=== PATIENT | female | born 1990 | race Caucasian/White ===

== ENCOUNTER 2017-07-21 10:08 | Emergency (ER) | payer BC, MEDICAID ==
[2017-07-21] MEDS ORDERED: KETOROLAC TROMETHAMINE INJ/PF 30 MG/1 ML SDV IV ONE (10:25)
[2017-07-21] MEDS ORDERED: DEXAMETHASONE SOD PHOS INJ 10 MG/1 ML VIAL IV ONE (10:25)
[2017-07-21] MEDS ORDERED: METOCLOPRAMIDE HCL INJ/PF 10 MG/2 ML SDV IV ONE (10:25)
[2017-07-21] MEDS ORDERED: DIPHENHYDRAMINE HCL 50 MG/ML VIAL IV ONE (10:25)
--- NOTE | 2017-07-21 10:41 | ER Document Report ---
ED General - General Chief Complaint: Headache Stated Complaint: VOMITING,HEADACHE Time Seen by Provider: 07/21/17 10:22 Notes: 18-year-old female with a history of infrequent migraines presents with gradual onset headache this morning, holocephalic with total body weakness photophobia and nausea but no vomiting. No focal weakness or numbness, similar to prior migraines except worse. No neck stiffness or fever. No home therapy. TRAVEL OUTSIDE OF THE [place] IN LAST 30 DAYS: No - Related Data Allergies/Adverse Reactions: No Known Allergies Allergy (Verified 07/21/17 10:11) Past Medical History - General Information source: Patient - Social History Smoking Status: Never Smoker Family History: Reviewed & Not Pertinent - Past Medical History Cardiac Medical History: Denies: Hx Coronary Artery Disease, Hx Heart Attack, Hx Hypertension Pulmonary Medical History: Denies: Hx Asthma, Hx Bronchitis, Hx COPD, Hx Pneumonia Neurological Medical History: Denies: Hx Cerebrovascular Accident, Hx Seizures Musculoskeltal Medical History: Denies Hx Arthritis, Denies Hx Fibromyalgia, Denies Hx Muscular Dystrophy Skin Medical History: Reports Hx MRSA Psychiatric Medical History: Reports: Hx Depression - Bupropion XR 150mg Qday Denies: Hx Bipolar Disorder, Hx Post Traumatic Stress Disorder, Hx Schizophrenia Traumatic Medical History: Reports: Hx Fractures Past Surgical History: Reports: Hx Gynecologic Surgery - Cold knife conization after abnormal PAP. Denies: Hx Appendectomy, Hx Bowel Surgery, Hx Section, Hx Cholecystectomy, Hx Coronary Artery Bypass Graft, Hx Gastric Bypass Surgery, Hx Herniorrhaphy, Hx Hysterectomy, Hx Mastectomy, Hx Pacemaker, Hx Tonsillectomy, Hx Tubal Ligation - Immunizations Hx Diphtheria, Pertussis, Tetanus Vaccination: Yes Review of Systems - Review of Systems Notes: REVIEW OF SYSTEMS GEN: Denies fever, chills, weight loss ENT: Denies sore throat, nasal discharge, ear pain EYES: Denies blurry vision, eye pain, discharge. Photophobia. CV: Denies chest pain, palpitations, edema RESP: Denies cough, shortness of breath, wheezing GI: Denies abdominal pain, nausea, vomiting, diarrhea MSK: Denies joint pain/swelling, edema, SKIN: Denies rash, skin lesions LYMPH: Denies swollen glands/lymph nodes NEURO: Headache, denies focal weakness or numbness, dizziness PSYCH: Denies depression, suicidal or homicidal ideation PHYSICAL EXAMINATION General: No acute distress, well-nourished Head: Atraumatic, normocephalic ENT: Mouth normal, oropharynx moist, no exudates or tonsillar enlargement Eyes: Conjunctiva normal, pupils equal, lids normal Neck: No JVD, supple, no guarding CVS: Normal rate, regular rhythm, no murmurs Resp: No resp distress, equal and normal breath sounds bilaterally GI: Nondistended, soft, no tenderness to palpation, no rebound or guarding Ext: No deformities, no edema, normal range of motion in upper and lower ext Back: No CVA or midline TTP Skin: No rash, warm Lymphatic: No lymphadeopathy noted Neuro: Awake, alert. Face symmetric. GCS 15. Cranial nerves II through XII are intact. No carotid drift. Intact procurement services manager. Intact strength and sensation all 4 extremities. Physical Exam - Vital signs Vitals: Temp Pulse Resp BP Pulse Ox 98.6 F 75 16 112/79 99 07/21/17 10:13 07/21/17 10:13 07/21/17 10:13 07/21/17 10:13 07/21/17 10:13 Course - Re-evaluation Re-evalutation: 07/21/17 10:41 Patient presents with headache similar to previous migraines. No neck stiffness or fever to suggest meningitis. No nuchal rigidity. Neurologic exam is normal. Unable to visualize fundi. Patient has an IUD suppressants not likely. Will treat with migraine cocktail and reassess. Doubt stroke doubly doubt need for imaging at this time. - Vital Signs Vital signs: Temp Pulse Resp BP Pulse Ox 98.6 F 75 16 112/79 99 07/21/17 10:13 07/21/17 10:13 07/21/17 10:13 07/21/17 10:13 07/21/17 10:13 Discharge - Discharge Clinical Impression: Migraine Qualifiers: Migraine type: unspecified Status migrainosus presence: without status migrainosus Intractability: not intractable Qualified Code(s): G43.909 - Migraine, unspecified, not intractable, without status migrainosus Condition: Good Disposition: HOME, SELF-CARE Instructions: Antinausea Medication ([facility]) Additional Instructions: Please contact her primary care physician regarding ongoing therapy of migraines. Please return to the emergency room if your headache gets worse or you are unable to keep down the nausea medication. Prescriptions: Prochlorperazine Maleate [Compazine 10 mg Tablet] 10 mg PO ASDIR PRN #10 tablet PRN Reason:
[2017-07-21 11:41] VITALS: BP 110/74
== END 2017-07-21 11:39 | disposition home or self-care (01) ==
LOC: ER 10:08
DX: G43.909 Migraine, unspecified, not intractable, without status migrainosus (principal); R11.0 Nausea; R53.1 Weakness; H53.149 Visual discomfort, unspecified
CPT/HCPCS: 99283; 96374; 96375; J1200; J1885; J2765; J1100